=== PATIENT | male | born 1995 | race Caucasian/White ===

== ENCOUNTER → 2024-05-14 07:45 | Outpatient (REF) | payer OTHER, SELFPAY | LOC: HWRAD 07:45 | PROVIDERS: ATTENDING PHYSICIAN Nurse Practitioner Family | DX: R22.31 Localized swelling, mass and lump, right upper limb (principal); R22.2 Localized swelling, mass and lump, trunk | CPT/HCPCS: 76604; 76882 ==

== ENCOUNTER → 2024-06-15 08:06 | Outpatient (REF) | payer OTHER, SELFPAY | LOC: HWRAD 08:06 | PROVIDERS: ATTENDING PHYSICIAN Surgery; FAMILY PHYSICIAN Nurse Practitioner Family | DX: R19.06 Epigastric swelling, mass or lump (principal) | CPT/HCPCS: 71260; Q9967 ==